=== PATIENT | female | born 2000 | race Caucasian/White ===

== ENCOUNTER 2024-12-27 12:43 | Emergency (ER) | payer OTHER, SELFPAY ==
[2024-12-27 13:04] VITALS: BP 133/76; PULSE 116; RESP 16; TEMP 36.7; O2SAT 100
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
== END 2024-12-27 13:23 | disposition short-term general hospital (02) ==
DX: M54.2 Cervicalgia (principal); V03.10XA Pedestrian on foot injured in collision with car, pick-up truck or van in traffic accident, initial encounter
CPT/HCPCS: 99212; G0463; L0140

== ENCOUNTER 2024-12-27 13:49 | Emergency (ER) | payer OTHER, SELFPAY ==
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
--- OUTSIDE RECORDS SUMMARY | 2024-12-26 13:30 | XMS_ITS | Encounter Summary ---
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 * Upper Back: Exercises (Irish) documented in this encounter Progress Notes * [...]
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
[2024-12-27 14:03] VITALS: BP 144/85; PULSE 103; RESP 16; TEMP 37; O2SAT 100
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
--- OUTSIDE RECORDS SUMMARY | 2024-12-27 15:26 | XMS_ITS | Clinical Summary ---
Author Organization [facility] Address [address], [place] [address] Care Team Providers Care Change Booth Attendant Name Role Phone Unavailable Primary Care Provider Unavailabl e Allergies No known active allergies Medications No known medications Active Problems No known active problems Encounters Date Type Department Care Team Description 12/26/2024 1:30 PM CDT Office Visit [facility] [address], [place] [phone] [facility] Angie Tanner APRN Acute upper back pain (Primary Dx) from Last 3 Months Social History Tobacco Use Types Packs/Day Years Used Date Smoking Tobacco: Never Tobacco Cessation:Counseling Given: Not Answered Comments Unknown Sex and Gender Information Value Date Recorded Sex Assigned at Not on file Legal Sex Female 1:14 PM CDT Gender Identity Not on file Sexual Orientation Not on file Last Filed Vital Signs Vital Sign Reading [...] Mass Index 32.27 12/26/2024 1:52 PM CDT Plan of Treatment Health Maintenance Due Date Last Done Comments HPV VACCINES (1 - 3-dose series) 2013 DTAP/TDAP/TD VACCINES (1 - Tdap) 2017 HEPATITIS B VACCINES (1 of 3 - 19+ 3-dose series) 03/04 CERVICAL CANCER SCREENING 2019 HPV/Cotest (21-29) 2019 PAP SMEAR 2019 INFLUENZA VACCINE (#1) 2024 Insurance ADMINISTRATIVE PAYOR Workflow
[2024-12-27 16:05] LABS: BEDSIDEPREGUCG Negative (Negative)
[2024-12-27 16:17] LABS: Add Urine Microscopic? NO; Appearance Urine Clear (Clear); Glucose Urine UA Negative (Negative); Leukocyte Esterase Ur Negative LEU/UL (Negative); Nitrate Urine Negative (Negative); Specific Grav Ur 1.015 (1.001-1.035)
--- OUTSIDE RECORDS SUMMARY | 2024-12-27 17:05 | XMS_ITS | Clinical Summary ---
Author Organization [facility] Address [address], [place] [address] Care Team Providers Care Coal Hauler Name Role Phone Unavailable Primary Care Provider Unavailabl e Allergies No known active allergies Medications No known medications Active Problems No known active problems Encounters Date Type Department Care Team Description 12/26/2024 1:30 PM CDT Office Visit [facility] [address], [place] [phone] [facility] Angie Tanner APRN Acute upper back pain [...]
== END 2024-12-27 17:28 | disposition home or self-care (01) ==
PROVIDERS: Nurse Practitioner Adult Health; Emergency Provider Emergency Medicine
DX: S16.1XXA Strain of muscle, fascia and tendon at neck level, initial encounter (principal); V03.10XA Pedestrian on foot injured in collision with car, pick-up truck or van in traffic accident, initial encounter
CPT/HCPCS: 70450; 72125; 72128; 72131; 81003; 81025; 99284